=== PATIENT | male | born 1955 | race Caucasian/White ===

== ENCOUNTER 2018-12-13 13:32 | Emergency (ER) | payer OTHER ==
[~2018-12-13] VITALS: Ht 182.9 cm; Wt 70.3 kg
[2018-12-13 14:03] LABS: Urine Bacteria NONE SEEN /hpf (None Seen); Urine Blood Negative /uL (Negative); Urine Specific Gravity 1.005 (1.001-1.035); Urine WBC <1 /hpf (0 - 3)
[2018-12-13 14:22] LABS: Basophils # (auto) 0 uL; Basophils % (auto) 0.4 % (0.0-2.0); Eosinophils # (auto) 0 uL; Eosinophils % (auto) 0.4 % (0.0-7.0); Hematocrit 48.9 % (41.0-53.0); Hemoglobin 16.5 g/dL (13.5-17.5); Lymphocytes # (auto) 1.8 uL; Lymphocytes % (auto) 32.1 % (10.0-50.0); Mean Corpuscular Hemoglobin 33.3 pg (28.0-32.0); Mean Corpuscular Hgb Conc. 33.8 g/dL (32.0-36.0); Mean Corpuscular Volume 98.4 fL (80.0-100.0); Monocytes # (auto) 0.5 uL; Monocytes % (auto) 7.9 % (0.0-12.0); Neutrophils # (auto) 3.4 uL; Neutrophils % (auto) 59.2 % (37.0-80.0); Nucleated Red Blood Cells % 0.1 %; Platelet Count (auto) 132 10^3/uL (140-450); Red Blood Cells 4.97 10^6/uL (4.5-5.90); Red Cell Distribution Width 12.3 % (11.8-14.3); White Blood Cell 5.7 10^3/uL (4.4-10.8)
[2018-12-13 14:36] LABS: Alanine Aminotransferase 40 U/L (16-61); Albumin 4.5 g/dL (3.4-5.0); Anion Gap 4 (5-15); Aspartate Aminotransferase 23 U/L (15-37); BUN/Creatinine Ratio 16.7; Blood Urea Nitrogen 13 mg/dL (7-18); Calcium 9.4 mg/dL (8.5-10.1); Carbon Dioxide 29 mmol/L (21-32); Chloride 108 mmol/L (98-107); GFR African American 129 mL/min; GFR Non-African American 107 mL/min; Glucose 96 mg/dL (74-106); Potassium 4.7 mmol/L (3.5-5.1); Sodium 141 mmol/L (136-145)
[2018-12-13 14:42] LABS: Alkaline Phosphatase 67 U/L (45-117); Bilirubin, Total 0.6 mg/dL (0.2-1.0); Total Protein 7.9 g/dL (6.4-8.2)
[2018-12-13] MEDS ORDERED: IBUPROFEN 600 MG TAB PO ONE (15:45)
[2018-12-13 16:40] VITALS: BP 146/76
== END 2018-12-13 16:55 | disposition home or self-care (01) ==
LOC: ER 13:32 → MERGE 13:32 → ER 16:55
DX: R07.89 Other chest pain (principal)
CPT/HCPCS: 36415; 71045; 80053; 81001; 84484; 85025; 93005

== ENCOUNTER → 2019-08-18 | Outpatient (CLI) | payer OTHER, MEDICARE ==
[2019-08-18 08:05] LABS: Basophils # (auto) 0 uL; Basophils % (auto) 0.6 % (0.0-2.0); Eosinophils # (auto) 0 uL; Eosinophils % (auto) 1.1 % (0.0-7.0); Hematocrit 47.9 % (41.0-53.0); Hemoglobin 16.6 g/dL (13.5-17.5); Lymphocytes # (auto) 1.4 uL; Lymphocytes % (auto) 36.7 % (10.0-50.0); Mean Corpuscular Hgb Conc. 34.6 g/dL (32.0-36.0); Monocytes # (auto) 0.4 uL; Monocytes % (auto) 10.8 % (0.0-12.0); Neutrophils % (auto) 50.8 % (37.0-80.0); Nucleated Red Blood Cells % 0.1 %; Platelet Count (auto) 116 10^3/uL (140-450); Red Blood Cells 4.89 10^6/uL (4.5-5.90); Red Cell Distribution Width 12.3 % (11.8-14.3); White Blood Cell 3.9 10^3/uL (4.4-10.8)
[2019-08-18 08:23] LABS: Potassium 4.1 mmol/L (3.5-5.1)
[2019-08-18 08:30] LABS: Prostate Specific Antigen 1.35 ng/mL (0.0-4.0)
[2019-08-18 08:35] LABS: Albumin 4.1 g/dL (3.4-5.0); BUN/Creatinine Ratio 16.9; Bilirubin, Total 1.1 mg/dL (0.2-1.0); Calcium 8.8 mg/dL (8.5-10.1); Total Protein 7.6 g/dL (6.4-8.2)
== END | disposition home or self-care (01) ==
LOC: LAB 07:02
PROVIDERS: ATTEND Physician Assistant
DX: Z00.00 Encounter for general adult medical examination without abnormal findings (principal); I10 Essential (primary) hypertension; K21.9 Gastro-esophageal reflux disease without esophagitis; R00.2 Palpitations; N40.2 Nodular prostate without lower urinary tract symptoms; R53.83 Other fatigue
CPT/HCPCS: 36415; 80053; 80061; 82274; 82306; 82607; 84153; 84403; 85025

== ENCOUNTER → 2020-08-17 | Outpatient (CLI) | payer MEDICARE, OTHER ==
[2020-08-17 07:32] LABS: Basophils # (auto) 0 10 ^3/uL (0-0.2); Basophils % (auto) 0.4 % (0.0-2.0); Eosinophils # (auto) 0.1 10 ^3/uL (0-0.8); Eosinophils % (auto) 1.5 % (0.0-7.0); Hemoglobin 15.3 g/dL (13.5-17.5); Lymphocytes # (auto) 1.3 10 ^3/uL (0.4-5.4); Lymphocytes % (auto) 36.4 % (10.0-50.0); Mean Corpuscular Hemoglobin 33.3 pg (28.0-32.0); Mean Corpuscular Hgb Conc. 33.9 g/dL (32.0-36.0); Mean Corpuscular Volume 98.2 fL (80.0-100.0); Monocytes # (auto) 0.4 10 ^3/uL (0-1.3); Monocytes % (auto) 12.2 % (0.0-12.0); Neutrophils # (auto) 1.8 10 ^3/uL (1.6-8.6); Neutrophils % (auto) 49.5 % (37.0-80.0); Nucleated Red Blood Cells % 0.3 %; Platelet Count (auto) 120 10^3/uL (140-450); Red Blood Cells 4.58 10^6/uL (4.5-5.90); Red Cell Distribution Width 12.4 % (11.8-14.3); White Blood Cell 3.6 10^3/uL (4.4-10.8)
[2020-08-17 08:19] LABS: Albumin 3.6 g/dL (3.4-5.0); Calcium 8.8 mg/dL (8.5-10.1); Potassium 4.3 mmol/L (3.5-5.1)
[2020-08-17 08:25] LABS: BUN/Creatinine Ratio 14.5; Bilirubin, Total 0.7 mg/dL (0.2-1.0); Total Protein 6.7 g/dL (6.4-8.2)
== END | disposition home or self-care (01) ==
LOC: LAB 07:10
PROVIDERS: ATTEND Physician Assistant
DX: I10 Essential (primary) hypertension (principal); N40.2 Nodular prostate without lower urinary tract symptoms; R53.83 Other fatigue; Z00.00 Encounter for general adult medical examination without abnormal findings
CPT/HCPCS: 36415; 80053; 80061; 84153; 85025

== ENCOUNTER → 2020-08-21 | Outpatient (CLI) | payer MEDICARE, OTHER | END | disposition home or self-care (01) | LOC: LAB 13:43 | PROVIDERS: ATTEND Physician Assistant | DX: I10 Essential (primary) hypertension (principal); N40.2 Nodular prostate without lower urinary tract symptoms; R53.83 Other fatigue; Z00.00 Encounter for general adult medical examination without abnormal findings | CPT/HCPCS: 82274 ==

== ENCOUNTER → 2021-06-08 | Outpatient (CLI) | payer MEDICARE, OTHER ==
[2021-06-08 07:53] LABS: Albumin 3.8 g/dL (3.4-5.0)
[2021-06-08 08:01] LABS: Bilirubin, Direct 0.2 mg/dL (0-0.2); Bilirubin, Total 1.1 mg/dL (0.2-1.0); Total Protein 7.1 g/dL (6.4-8.2)
[2021-06-08 09:30] LABS: Ferritin 161.1 ng/mL (10-322)
== END | disposition home or self-care (01) ==
LOC: LAB 06:41
PROVIDERS: ATTEND Psychiatry & Neurology Neurology
DX: E61.1 Iron deficiency (principal); G62.9 Polyneuropathy, unspecified; R53.83 Other fatigue
CPT/HCPCS: 36415; 80076; 82607; 82728; 82951; 84443

== ENCOUNTER → 2021-11-21 | Day surgery (SDC) | payer MEDICARE, OTHER ==
[2021-11-19 12:51] LABS: Basophils # (auto) 0 10 ^3/uL (0-0.2); Basophils % (auto) 0.5 % (0.0-2.0); Eosinophils # (auto) 0 10 ^3/uL (0-0.8); Eosinophils % (auto) 0.6 % (0.0-7.0); Hemoglobin 15.1 g/dL (13.5-17.5); Lymphocytes # (auto) 1.3 10 ^3/uL (0.4-5.4); Lymphocytes % (auto) 30.2 % (10.0-50.0); Mean Corpuscular Hemoglobin 33.5 pg (28.0-32.0); Mean Corpuscular Hgb Conc. 34.4 g/dL (32.0-36.0); Mean Corpuscular Volume 97.5 fL (80.0-100.0); Monocytes # (auto) 0.4 10 ^3/uL (0-1.3); Monocytes % (auto) 10.3 % (0.0-12.0); Neutrophils # (auto) 2.5 10 ^3/uL (1.6-8.6); Neutrophils % (auto) 58.4 % (37.0-80.0); Nucleated Red Blood Cells % 0.1 %; Red Blood Cells 4.51 10^6/uL (4.5-5.90); Red Cell Distribution Width 12.5 % (11.8-14.3); White Blood Cell 4.3 10^3/uL (4.4-10.8)
[2021-11-19 13:02] LABS: Urine Bacteria NONE SEEN /hpf (None Seen); Urine Blood Negative /uL (Negative); Urine Specific Gravity 1.009 (1.001-1.035); Urine WBC <1 /hpf (0 - 3)
[2021-11-19 13:08] LABS: INR 1.02 (0.9-1.15); Partial Thromboplastin Time 25.6 sec (23.6-33.0)
[2021-11-19 13:13] LABS: Albumin 3.9 g/dL (3.4-5.0); BUN/Creatinine Ratio 19.2; Calcium 9.2 mg/dL (8.5-10.1); Potassium 4.7 mmol/L (3.5-5.1)
[2021-11-19 13:16] LABS: Bilirubin, Total 0.6 mg/dL (0.2-1.0); Total Protein 7.1 g/dL (6.4-8.2)
[~2021-11-21] VITALS: Ht 182.9 cm; Wt 71.7 kg
[~2021-11-21] MED LIST: ACE3T PO; BUPIVACAINE 0.25% INJ 50ML VIAL ONE; CEPH-322 PO; DexAMETHasone SOD PHOS 10MG/1ML VIAL INJ ONE; HYDROmorphone HCL 2 MG/ML VL IV PRN; KETOROLAC TROMETH 30 MG/ML 1ML VIAL IV ONE; LABETALOL HCL 5 MG/ML 4ML SYRINGE IV PRN; MEPERIDINE HCL (50 MG/ML) 1 ML VIAL ONE; MIDAZOLAM HCL 2MG/2ML 2ml VIAL (1mg/ml) IV PRN; MIDAZOLAM HCL 2MG/2ML 2ml VIAL (1mg/ml) ONE; MORPHINE SULFATE 4 MG/ML SYR/VIAL IV PRN; ONDANSETRON HCL 4 MG/2 ML VIAL IV PRN; PROPOFOL 10 MG/ML 20 ML IV ONE; ceFAZolin 1GM/50ML 100 ML IV ONE; ePHEDrine SULFATE 50 MG/ML AMP IV PRN; fentaNYL CITRATE 100 MCG/2 ML VL ONE
[2021-11-21 11:40] VITALS: BP 137/68
== END | disposition home or self-care (01) ==
LOC: SUR 07:59
PROVIDERS: ATTEND Surgery
DX: K40.90 Unilateral inguinal hernia, without obstruction or gangrene, not specified as recurrent (principal); I10 Essential (primary) hypertension; Z20.822 Contact with and (suspected) exposure to COVID-19
CPT/HCPCS: 36415; 49505; 80053; 81001; 85025; 85610; 85730; 86850; 86900; 86901; C1781; J0690; J1100; J2175; J2250; J2704; J3010; J3490; U0003

== ENCOUNTER → 2022-08-13 | Outpatient (CLI) | payer MEDICARE, OTHER ==
[~2022-08-13] MED LIST changes: -BUPIVACAINE 0.25% INJ 50ML VIAL ONE; -DexAMETHasone SOD PHOS 10MG/1ML VIAL INJ ONE; -HYDROmorphone HCL 2 MG/ML VL IV PRN; -KETOROLAC TROMETH 30 MG/ML 1ML VIAL IV ONE; -LABETALOL HCL 5 MG/ML 4ML SYRINGE IV PRN; -MEPERIDINE HCL (50 MG/ML) 1 ML VIAL ONE; -MIDAZOLAM HCL 2MG/2ML 2ml VIAL (1mg/ml) IV PRN; -MIDAZOLAM HCL 2MG/2ML 2ml VIAL (1mg/ml) ONE; -MORPHINE SULFATE 4 MG/ML SYR/VIAL IV PRN; -ONDANSETRON HCL 4 MG/2 ML VIAL IV PRN; -PROPOFOL 10 MG/ML 20 ML IV ONE; -ceFAZolin 1GM/50ML 100 ML IV ONE; -ePHEDrine SULFATE 50 MG/ML AMP IV PRN; -fentaNYL CITRATE 100 MCG/2 ML VL ONE
[2022-08-13 07:48] LABS: HDL Cholesterol 66 mg/dL (40-59); LDL Cholesterol 89 mg/dL (< 100); Triglycerides 76 mg/dL (< 150)
[2022-08-13 09:11] LABS: Cholesterol 146 mg/dL (< 200)
== END | disposition home or self-care (01) ==
LOC: LAB 06:34
PROVIDERS: ATTEND Internal Medicine
DX: R73.03 Prediabetes (principal); N40.0 Benign prostatic hyperplasia without lower urinary tract symptoms; D72.19 Other eosinophilia; I10 Essential (primary) hypertension
CPT/HCPCS: 36415; 80061; 83036; 84153; 84155; 84165; 84207

== ENCOUNTER → 2022-09-30 | Outpatient (CLI) | payer MEDICARE, OTHER ==
[2022-09-30 07:10] LABS: Basophils # (auto) 0 10 ^3/uL (0-0.2); Basophils % (auto) 0.4 % (0.0-2.0); Eosinophils # (auto) 0.1 10 ^3/uL (0-0.8); Eosinophils % (auto) 1.3 % (0.0-7.0); Hematocrit 43.8 % (41.0-53.0); Hemoglobin 14.6 g/dL (13.5-17.5); Lymphocytes # (auto) 1.4 10 ^3/uL (0.4-5.4); Lymphocytes % (auto) 33.9 % (10.0-50.0); Mean Corpuscular Hemoglobin 32.6 pg (28.0-32.0); Mean Corpuscular Hgb Conc. 33.3 g/dL (32.0-36.0); Mean Corpuscular Volume 98.1 fL (80.0-100.0); Monocytes # (auto) 0.5 10 ^3/uL (0-1.3); Monocytes % (auto) 11.6 % (0.0-12.0); Neutrophils # (auto) 2.2 10 ^3/uL (1.6-8.6); Neutrophils % (auto) 52.8 % (37.0-80.0); Nucleated Red Blood Cells % 0.1 %; Red Blood Cells 4.47 10^6/uL (4.5-5.90); Red Cell Distribution Width 12.4 % (11.8-14.3); White Blood Cell 4.2 10^3/uL (4.4-10.8)
== END | disposition home or self-care (01) ==
LOC: LAB 06:53
PROVIDERS: ATTEND Internal Medicine
DX: R73.03 Prediabetes (principal); Z12.11 Encounter for screening for malignant neoplasm of colon
CPT/HCPCS: 36415; 82043; 82270; 85025

== ENCOUNTER → 2023-02-04 | Outpatient (CLI) | payer MEDICARE, OTHER ==
[2023-02-04 06:55] LABS: Basophils # (auto) 0 10 ^3/uL (0-0.2); Basophils % (auto) 0.5 % (0.0-2.0); Eosinophils # (auto) 0.1 10 ^3/uL (0-0.8); Eosinophils % (auto) 1.5 % (0.0-7.0); Hematocrit 40.2 % (41.0-53.0); Hemoglobin 13.8 g/dL (13.5-17.5); Lymphocytes # (auto) 1.3 10 ^3/uL (0.4-5.4); Lymphocytes % (auto) 38.1 % (10.0-50.0); Mean Corpuscular Hemoglobin 33.6 pg (28.0-32.0); Mean Corpuscular Hgb Conc. 34.4 g/dL (32.0-36.0); Mean Corpuscular Volume 97.5 fL (80.0-100.0); Monocytes # (auto) 0.4 10 ^3/uL (0-1.3); Monocytes % (auto) 10.1 % (0.0-12.0); Neutrophils # (auto) 1.8 10 ^3/uL (1.6-8.6); Neutrophils % (auto) 49.8 % (37.0-80.0); Nucleated Red Blood Cells % 0.1 %; Red Blood Cells 4.12 10^6/uL (4.5-5.90); Red Cell Distribution Width 12.7 % (11.8-14.3); White Blood Cell 3.5 10^3/uL (4.4-10.8)
== END | disposition home or self-care (01) ==
LOC: LAB 06:41
PROVIDERS: ATTEND Internal Medicine
DX: D72.819 Decreased white blood cell count, unspecified (principal)
CPT/HCPCS: 36415; 85025

== ENCOUNTER → 2023-02-24 | Outpatient (CLI) | payer MEDICARE, OTHER ==
[~2023-02-24] MED LIST changes: -CEPH-322 PO; +CEPH250C PO
[2023-02-24 07:33] LABS: Basophils # (auto) 0 10 ^3/uL (0-0.2); Basophils % (auto) 0.5 % (0.0-2.0); Eosinophils # (auto) 0 10 ^3/uL (0-0.8); Eosinophils % (auto) 1.1 % (0.0-7.0); Hematocrit 44.7 % (41.0-53.0); Hemoglobin 15.2 g/dL (13.5-17.5); Lymphocytes # (auto) 1.3 10 ^3/uL (0.4-5.4); Lymphocytes % (auto) 37.2 % (10.0-50.0); Mean Corpuscular Hemoglobin 33.5 pg (28.0-32.0); Mean Corpuscular Hgb Conc. 34.1 g/dL (32.0-36.0); Mean Corpuscular Volume 98.3 fL (80.0-100.0); Monocytes # (auto) 0.4 10 ^3/uL (0-1.3); Monocytes % (auto) 9.8 % (0.0-12.0); Neutrophils # (auto) 1.9 10 ^3/uL (1.6-8.6); Neutrophils % (auto) 51.4 % (37.0-80.0); Red Blood Cells 4.55 10^6/uL (4.5-5.90); Red Cell Distribution Width 12.9 % (11.8-14.3); White Blood Cell 3.6 10^3/uL (4.4-10.8)
[2023-02-24 07:47] LABS: INR 1.02 (0.9-1.15); Partial Thromboplastin Time 26.2 sec (24.6-33.4)
[2023-02-24 08:24] LABS: Potassium 3.9 mmol/L (3.5-5.1)
[2023-02-24 08:31] LABS: Albumin 4.1 g/dL (3.4-5.0); BUN/Creatinine Ratio 13.6 (10.0-20.0); Bilirubin, Total 0.8 mg/dL (0.2-1.0); Calcium 8.9 mg/dL (8.5-10.1); Total Protein 7.4 g/dL (6.4-8.2)
[2023-02-24 08:32] LABS: % Iron Saturation 48.1 % (20-55)
[2023-02-24 08:37] LABS: Thyroid Stimulating Hormone 3.54 uIU/mL (0.358-3.74)
[2023-02-24 09:26] LABS: Ferritin 120.2 ng/mL (10-322)
[2023-02-24 09:28] LABS: Free T4 (Free Thyroxine) 0.99 ng/dL (0.89-1.76)
[2023-02-24 09:34] LABS: Hepatitis B Surface Antibody Negative (Negative)
[2023-02-24 09:48] LABS: Folate (Folic Acid) 22.74 ng/mL (5.38-24)
[2023-02-24 10:09] LABS: Hepatitis A Total Antibody Positive (Negative)
== END | disposition home or self-care (01) ==
LOC: LAB 06:45
PROVIDERS: ATTEND Internal Medicine
DX: D61.818 Other pancytopenia (principal)
CPT/HCPCS: 36415; 80053; 82607; 82728; 82746; 83540; 83550; 83615; 84311; 84439; 84443; 85025; 85610; 85652; 85730; 86038; 86225; 86703; 86704; 86706; 86708; 87340

== ENCOUNTER → 2023-09-02 | Outpatient (CLI) | payer MEDICARE, OTHER ==
[2023-09-02 07:47] LABS: Alanine Aminotransferase 34 U/L (7-40); Albumin 4.4 g/dL (3.2-4.8); Alkaline Phosphatase 62 U/L (46-116); Anion Gap 5 (5-15); Aspartate Aminotransferase 36 U/L (13-40); BUN/Creatinine Ratio 11.7 (10.0-20.0); Bilirubin, Total 0.9 mg/dL (0.2-1.0); Blood Urea Nitrogen 9 mg/dL (9-23); Calcium 9.6 mg/dL (8.5-10.1); Carbon Dioxide 29 mmol/L (20-30); Chloride 107 mmol/L (98-107); Cholesterol 145 mg/dL (< 200); Glucose 97 mg/dL (74-106); HDL Cholesterol 57 mg/dL (40-59); LDL Cholesterol 83 mg/dL (< 100); Potassium 4.1 mmol/L (3.5-5.1); Sodium 141 mmol/L (136-145); Total Protein 6.9 g/dL (5.7-8.2); Triglycerides 72 mg/dL (< 150)
[2023-09-02 08:22] LABS: Creatinine, Urine 31.78 mg/dL (30.0-125.0)
[2023-09-02 08:25] LABS: Micro Albumin < 3.0 mg/L (<30.0)
== END | disposition home or self-care (01) ==
LOC: LAB 06:42
PROVIDERS: ATTEND Internal Medicine
DX: Z12.11 Encounter for screening for malignant neoplasm of colon (principal); R73.03 Prediabetes; E78.5 Hyperlipidemia, unspecified; D72.819 Decreased white blood cell count, unspecified
CPT/HCPCS: 36415; 80053; 80061; 82043; 82570; 83036

== ENCOUNTER → 2023-11-27 | Outpatient (CLI) | payer MEDICARE, OTHER ==
[2023-11-27 07:29] LABS: Hemoglobin 14.6 g/dL (13.5-17.5); Mean Corpuscular Hemoglobin 32.5 pg (28.0-32.0); Mean Corpuscular Hgb Conc. 33.2 g/dL (32.0-36.0); Red Blood Cells 4.49 10^6/uL (4.5-5.90); Red Cell Distribution Width 12.9 % (11.8-14.3); White Blood Cell 3.8 10^3/uL (4.4-10.8)
[2023-11-27 07:32] LABS: Band Neutrophils % (manual) 0; Basophils % (manual) 0 (0.0-2.0); Blast Cells 0; Eosinophils % (manual) 0 (0-7); Metamyelocytes % 0; Myelocytes % 0; Promyelocytes % 0; Reactive Lymphocytes 0
[2023-11-27 08:34] LABS: Lymphocytes % (manual) 30 (10.0-50.0); Monocytes % (manual) 18 (0-12); Platelet Estimate Decreased
== END | disposition home or self-care (01) ==
LOC: LAB 06:49
PROVIDERS: ATTEND Internal Medicine
DX: D61.818 Other pancytopenia (principal)
CPT/HCPCS: 36415; 85007; 85027

== ENCOUNTER → 2024-02-03 | Outpatient (CLI) | payer MEDICARE, OTHER | END | disposition home or self-care (01) | LOC: LAB 06:39 | PROVIDERS: ATTEND Internal Medicine | DX: Z12.5 Encounter for screening for malignant neoplasm of prostate (principal) | CPT/HCPCS: 84153 ==

== ENCOUNTER → 2024-05-26 | Outpatient (CLI) | payer MEDICARE, OTHER ==
[2024-05-26 14:59] LABS: Urine Blood Negative /uL (Negative); Urine Clarity Clear (Clear); Urine Color Yellow (Yellow); Urine Protein, UAD Negative (Negative); Urine Specific Gravity 1.014 (1.001-1.035); Urine Urobilinogen Normal (Negative); Urine pH 6.5 (5.0-9.0)
[2024-05-26 15:07] LABS: Basophils # (auto) 0 10 ^3/uL (0-0.2); Basophils % (auto) 0.5 % (0.0-2.0); Eosinophils # (auto) 0.1 10 ^3/uL (0-0.8); Eosinophils % (auto) 1.3 % (0.0-7.0); Hematocrit 43.1 % (41.0-53.0); Hemoglobin 14.8 g/dL (13.5-17.5); Lymphocytes # (auto) 1.8 10 ^3/uL (0.4-5.4); Mean Corpuscular Hemoglobin 33.3 pg (28.0-32.0); Mean Corpuscular Hgb Conc. 34.3 g/dL (32.0-36.0); Mean Corpuscular Volume 97.1 fL (80.0-100.0); Monocytes # (auto) 0.6 10 ^3/uL (0-1.3); Monocytes % (auto) 11.1 % (0.0-12.0); Neutrophils # (auto) 2.5 10 ^3/uL (1.6-8.6); Neutrophils % (auto) 51.1 % (37.0-80.0); Nucleated Red Blood Cells % 0.1 %; Platelet Count (auto) 104 10^3/uL (140-450); Red Blood Cells 4.44 10^6/uL (4.5-5.90); Red Cell Distribution Width 12.4 % (11.8-14.3)
[2024-05-26 15:38] LABS: Alanine Aminotransferase 26 U/L (7-40); Albumin 4.2 g/dL (3.2-4.8); Alkaline Phosphatase 68 U/L (46-116); Anion Gap 5 (5-15); Aspartate Aminotransferase 23 U/L (13-40); Blood Urea Nitrogen 12 mg/dL (9-23); Calcium 9.4 mg/dL (8.7-10.4); Carbon Dioxide 29 mmol/L (20-30); Chloride 107 mmol/L (98-107); Glucose 120 mg/dL (74-106); Sodium 141 mmol/L (136-145)
[2024-05-26 15:39] LABS: Bilirubin, Total 0.7 mg/dL (0.2-1.0); Total Protein 6.8 g/dL (5.7-8.2)
[2024-05-27 08:06] LABS: Immunoglobulin A 269 mg/dL (61-437)
[2024-05-27 08:54] LABS: Hepatitis B Surface Antigen Negative (Negative)
[2024-05-27 09:15] LABS: Hepatitis C Antibody Negative (Negative)
[2024-05-29 17:06] LABS: t-Transglutaminase (tTG) IgA <2 U/mL (0-3)
[2024-05-30 05:06] LABS: Endomysial IgA Antibody Negative (Negative)
== END | disposition home or self-care (01) ==
LOC: LAB 14:18
PROVIDERS: ATTEND Internal Medicine
DX: D72.819 Decreased white blood cell count, unspecified (principal); R73.03 Prediabetes; Z79.891 Long term (current) use of opiate analgesic
CPT/HCPCS: 36415; 80053; 81003; 82306; 82728; 82784; 83516; 85025; 86255; 86803; 87340

== ENCOUNTER → 2024-12-07 | Outpatient (CLI) | payer MEDICARE, OTHER ==
[2024-12-07 07:28] LABS: Basophils # (auto) 0 10 ^3/uL (0-0.2); Basophils % (auto) 0.4 % (0.0-2.0); Eosinophils # (auto) 0.1 10 ^3/uL (0-0.8); Eosinophils % (auto) 1.4 % (0.0-7.0); Hematocrit 43.8 % (41.0-53.0); Lymphocytes # (auto) 1.4 10 ^3/uL (0.4-5.4); Lymphocytes % (auto) 34.1 % (10.0-50.0); Mean Corpuscular Hemoglobin 33.1 pg (28.0-32.0); Mean Corpuscular Hgb Conc. 34.2 g/dL (32.0-36.0); Mean Corpuscular Volume 96.7 fL (80.0-100.0); Monocytes # (auto) 0.4 10 ^3/uL (0-1.3); Neutrophils # (auto) 2.1 10 ^3/uL (1.6-8.6); Neutrophils % (auto) 53.1 % (37.0-80.0); Nucleated Red Blood Cells % 0.1 %; Platelet Count (auto) 104 10^3/uL (140-450); Red Blood Cells 4.53 10^6/uL (4.5-5.90); Red Cell Distribution Width 12.7 % (11.8-14.3)
[2024-12-07 07:42] LABS: Prostate Specific Antigen 0.94 ng/mL (0.0-4.0)
== END | disposition home or self-care (01) ==
LOC: LAB 06:51
PROVIDERS: ATTEND Internal Medicine
DX: R73.03 Prediabetes (principal); D69.6 Thrombocytopenia, unspecified; Z79.899 Other long term (current) drug therapy
CPT/HCPCS: 36415; 82306; 82607; 83036; 84153; 85025

== ENCOUNTER 2025-06-07 06:36 | Outpatient (CLI) | payer MEDICARE, OTHER ==
[2025-06-07 07:08] LABS: Hematocrit 43.4 % (41.0-53.0); Hemoglobin 15.0 g/dL (13.5-17.5); Mean Corpuscular Hemoglobin 33.2 pg (28.0-32.0); Mean Corpuscular Volume 95.9 fL (80.0-100.0); Nucleated Red Blood Cells % 0.0 %
== END 2025-06-07 17:00 | disposition home or self-care (01) ==
LOC: LAB 06:36
PROVIDERS: ATTEND Internal Medicine
DX: R73.03 Prediabetes (principal); D72.819 Decreased white blood cell count, unspecified
CPT/HCPCS: 36415; 83036; 85025

== ENCOUNTER 2025-08-05 08:40 | Day surgery (SDC) | payer MEDICARE, OTHER ==
[2025-08-03 14:13] LABS: Hematocrit 41.3 % (41.0-53.0); Hemoglobin 14.1 g/dL (13.5-17.5); Mean Corpuscular Hemoglobin 33.0 pg (28.0-32.0); Mean Corpuscular Volume 96.5 fL (80.0-100.0); Nucleated Red Blood Cells % 0.0 %
[2025-08-03 14:28] LABS: INR 1.03 (0.9-1.15); Partial Thromboplastin Time 25.8 SEC (24.5-34.5); Prothrombin Time 10.9 sec (9.3-11.8)
[2025-08-03 14:31] LABS: Urine Protein, UAD Negative (Negative)
[2025-08-03 14:33] LABS: Alanine Aminotransferase 28 U/L (7-40); Albumin 4.0 g/dL (3.2-4.8); Alkaline Phosphatase 70 U/L (46-116); Anion Gap 8 (5-15); BUN/Creatinine Ratio 13.6 (10.0-20.0); Bilirubin, Total 0.6 mg/dL (0.2-1.0); Blood Urea Nitrogen 11 mg/dL (9-23); Calcium 9.5 mg/dL (8.7-10.4); Carbon Dioxide 31 mmol/L (20-31); Chloride 105 mmol/L (98-107); Glucose 101 mg/dL (74-106); Potassium 4.4 mmol/L (3.5-5.1); Sodium 144 mmol/L (136-145); Total Protein 6.6 g/dL (5.7-8.2)
[~2025-08-05] VITALS: Ht 182.9 cm; Wt 68.9 kg
[2025-08-05] MEDS ORDERED: LIDOCAINE 1% INJ PF 5ML AMP ONE (09:50)
[2025-08-05] MEDS ORDERED: PROPOFOL 10 MG/ML 20 ML IV ONE (09:50)
[2025-08-05 10:11] VITALS: PULSE 50; RESP 17; O2SAT 98
[2025-08-05] MEDS ORDERED: ONDANSETRON HCL 4 MG/2 ML VIAL IV PRN (10:15)
--- NOTE | 2025-08-05 10:22 | DVHOP2 ---
Operative Report DATE OF OPERATION: 08/05/25 PROCEDURE: Colonoscopy with cold snare polypectomy and biopsy. PREOPERATIVE INDICATION: The patient is a 70 -year-old male undergoing colonoscopy for colon cancer screening complaining of abdominal distention and bloating POSTOPERATIVE DIAGNOSES: 1. Patient had a 3-4 mm benign-appearing transverse colon polyp that was seen and removed by cold snare polypectomy and the specimens were retrieved 2. There was a diminutive 1-2 mm benign-appearing hyperplastic type descending colon polyp that was seen and removed by cold biopsy forceps 3. [id number] tortuosity and redundancy of the colon especially involving the sigmoid colon and the splenic flexure 4. 1+ internal hemorrhoids otherwise essentially completely normal colonoscopy examination up to the cecum PROCEDURE PERFORMED BY: Sol Souza M.D. SCOPE: Olympus videocolonoscope. ASA CLASS: 2. PREOPERATIVE MEDICATIONS: Dr. Mo Saldana PROCEDURE IN DETAIL: After obtaining an informed consent, the patient was placed on left lateral decubitus position. He was then sedated with the above medications. A rectal examination was performed that was normal. The colonoscope was then passed through the anus into the rectosigmoid and through the descending, transverse, and ascending colon up to the cecum with visualization of the appendiceal orifice, base of the cecum and the ileocecal valve. The colonoscope was then withdrawn. No masses or colitis was noted. There was no clear-cut diverticular disease In the transverse colon there was a 3-4 mm benign-appearing sessile polyp that was seen and removed completely via cold snare polypectomy There was another diminutive 1-2 mm benign-appearing descending colon polyp that appeared hyperplastic. It was removed by cold biopsy forceps On retroflexion and straight on view patient had trace to 1+ internal hemorrhoids The patient tolerated the procedure well without difficulty. WITHDRAWAL TIME: 7 minutes QUALITY OF THE PREP: [place] Bowel Prep score: 9. COMPLICATIONS : None SPECIMENS: Transverse colon polyp Descending colon polyp DISPOSITION: Stable D/C to home PLAN: 1. Repeat colonoscopy base on biopsy result likely in 3-5 years 2. Resume GI soft diet advance as tolerated 3. Local anorectal hemorrhoidal care 4. Outpatient follow up with me in 4-6 weeks to review results and discuss further management SOL SOUZA MD Aug 05, 2025 10:21
[2025-08-05 10:36] VITALS: BP 125/62; PULSE 58; RESP 12; O2SAT 97
== END 2025-08-05 10:51 | disposition home or self-care (01) ==
LOC: GI 08:40
PROVIDERS: ATTEND Internal Medicine Gastroenterology
DX: R14.0 Abdominal distension (gaseous) (principal); D12.4 Benign neoplasm of descending colon; D12.3 Benign neoplasm of transverse colon; K63.89 Other specified diseases of intestine; K64.8 Other hemorrhoids; Z88.8 Allergy status to other drugs, medicaments and biological substances; Z79.899 Other long term (current) drug therapy
CPT/HCPCS: 36415; 45380; 45385; 80053; 81001; 85025; 85610; 85730; 88305; J2704; J7030